=== PATIENT | male | born 1975 | race Caucasian/White ===

== ENCOUNTER 2020-03-19 17:47 | Emergency (ER) | payer BC, SELFPAY ==
[2020-03-19 18:02] VITALS: BP 154/86; PULSE 60; RESP 20; TEMP 36.8; O2SAT 98
--- NOTE | 2020-03-19 18:20 | ED.UPPEXIN ---
HPI - Extremity Injury (Upper) General Chief Complaint: Extremity Injury, Upper Stated Complaint: wrist lac Time Seen by Provider: 03/19/20 18:08 Source: patient Mode of arrival: ambulatory Limitations: no limitations History of Present Illness HPI narrative: This is a 44 year old male that presents to the ER for left wrist laceration sustained just prior to arrival. Reports a piece of cinder block broke and hit the left wrist. Is unsure of his last tetanus vaccine. Denies decreased range of motion or numbness. Related Data Home Medications Medication Instructions Recorded Confirmed omega 1-soy-uwd-fish oil [Fish Oil] 1 cap PO DAILY 03/19/20 paroxetine HCl mg PO 03/19/20 Allergies Allergy/AdvReac Type Severity Reaction Status Date / Time No Known Allergies Allergy Verified 03/19/20 18:19 Review of Systems Review of Systems: Narrative: CONSTITUTIONAL: Denies fever SKIN: Reports laceration MUSCULOSKELETAL: Denies joint pain, or myalgia. NEUROLOGIC: Denies numbness All systems reviewed & are unremarkable except as noted in HPI and below PMFSH Past Medical History Medical History (Updated 03/19/20 @ 18:55 by Marie Daley PA-C) History of hyperlipidemia Social History Social History (Updated 03/19/20 @ 18:22 by Marie Daley PA-C) Smoking status: Never smoker Exam Narrative: Exam Narrative: GENERAL: Well-appearing, well-nourished, and in no acute distress. HEAD: Normocephalic, atraumatic. EYES: EOMI. EXTREMITIES: Normal range of motion. No edema or obvious deformity. SKIN: Warm, dry, no rash. 1cm linear laceration into subcutaneous tissue over the left medial wrist NEURO: No focal deficits. Alert and oriented x3. PSYCH: Normal mood and affect Course Vital Signs Vital signs: Vital Signs Temperature 98.3 F 03/19/20 18:02 Pulse Rate 60 03/19/20 18:02 Respiratory Rate 03/19/20 18:02 Blood Pressure 154/86 H 03/19/20 18:02 Pulse Oximetry 98 03/19/20 18:02 Temperature 98.3 F 03/19/20 18:02 Pulse Rate 60 03/19/20 18:02 Respiratory Rate 03/19/20 18:02 Blood Pressure 154/86 H 07/03/20 18:02 Pulse Oximetry 98 03/19/20 18:02 Procedures Laceration Laceration 1: Date: 03/19/20 Time: 18:54 Site: hand Side (If applicable): left Size (cm): 1 Description: linear Depth: simple, single layer Local Anesthetic: lidocaine 1% and with epi Amount of anesthesia used (mL): 2 Pre-repair: irrigated ====== Skin Level ====== Skin layer closed with: nylon Size (cm): 5-0 Number of sutures: 2 Technique: simple, interrupted ====== Subcutaneous Layer ====== ====== Muscle Layer ====== ====== Tendon Layer ====== Dressing: Antibiotic ointment, gauze and tape MDM - Extremity Injury (Upper) MDM Narrative Medical decision making narrative: Patient presents the emergency department for left wrist laceration sustained just prior to arrival. Patient was updated on tetanus. Wound was irrigated and closed with sutures. Patient refused x-ray of the wrist. Patient was instructed on wound care. He is to follow-up with primary care doctor. He was given warnings to return to the ER Critical Care Time Critical Care Time Critical Care Time: No Discharge Plan Discharge Clinical Impression: Laceration Patient Disposition: Home, Self-Care Condition: Stable Instructions: Care For Your Stitches (ED), Laceration (ED) Additional Instructions: Return to the emergency department if you experience fever, redness or swelling of your wound, abnormal drainage from your wound, or any other symptoms that are concerning to you. Apply antibiotic ointment daily. Do not soak the wound. Clean with mild soap and water daily Follow-up with your primary care doctor for suture removal in 10-14 days. Prescriptions: No Action paroxetine HCl 20 mg tablet PO R
[2020-03-19] MEDS: TETANUS,DIPHTHERIA,AC PERTUSSIS ADULT (0.5 ML) BOOSTRIX IM (18:34)
--- NOTE | 2020-03-19 18:39 | PC.NURSE ---
ED PA in room with patient at this time.
== END 2020-03-19 19:06 | disposition home or self-care (01) ==
PROVIDERS: Emergency Provider Emergency Medicine; PCP Family Medicine Adolescent Medicine
DX: S61.512A Laceration without foreign body of left wrist, initial encounter (principal); E78.5 Hyperlipidemia, unspecified; W20.8XXA Other cause of strike by thrown, projected or falling object, initial encounter; Z23 Encounter for immunization
CPT/HCPCS: 12001; 90471; 90715; 99282

== ENCOUNTER 2022-05-13 13:03 | Emergency (ER) | payer BC, SELFPAY ==
[2022-05-13 13:29] VITALS: BP 147/87; PULSE 75; RESP 20; TEMP 36.4; O2SAT 97
--- NOTE | 2022-05-13 15:41 | ED.UPPEXIN ---
HPI - Extremity Injury (Upper) General Chief Complaint: Extremity Injury, Upper Stated Complaint: forearm vs chainsaw Time Seen by Provider: 05/13/22 15:34 History of Present Illness HPI narrative: Patient is a 47-year-old male who is left-handed here for evaluation of 3 lacerations to his right forearm sustained about 30 minutes prior to arrival. Patient was using a chainsaw in his backyard cutting down trees when he started to lose control the chainsaw and sustained a laceration. He does not believe the laceration was from a chainsaw and is actually from the trees that he was cutting. Patient's tetanus is up-to-date. He notes that the lacerations were bleeding initially but after arrival to the ED they stopped spontaneously. He denies any numbness or tingling, bony pain, further injuries in the accident. Related Data Home Medications Medication Instructions Recorded Confirmed omega 5-ndg-njn-fish oil 1,000 mg 1 cap PO DAILY 03/19/20 (120 mg-180 mg) capsule (Fish Oil) Allergies Allergy/AdvReac Type Severity Reaction Status Date / Time No Known Allergies Allergy Verified 03/19/20 18:19 Review of Systems Review of Systems: Gen: Denies fevers or chills Eyes: Denies eye pain or visual change ENT: Denies congestion Respiratory: Denies shortness of breath or cough CV: Denies chest pain or palpitations GI: Denies abdominal pain nausea, emesis or diarrhea : denies burning, urgency, frequency or hematuria Musculoskeletal: Denies back pain or muscle pain Neuro: Denies numbness, tingling, weakness or focal weakness Skin: Reports laceration Except as documented, all other systems reviewed and negative PMFSH Past Medical History Medical History History of hyperlipidemia Social History Social History (Updated 03/19/20 @ 18:22 by Marie Daley PA-C) Smoking status: Never smoker Exam Narrative: APPEARANCE: Well appearing, no pain in distress, well-nourished. Head: Normocephalic and atraumatic. EYES: PERRLA/EOMI, conjunctivae clear NOSE: No nasal drainage EARS: External ear normal in appearance THROAT: Oropharynx is clear. Mucous membranes are moist. NECK: Supple. No adenopathy, no masses. RESPIRATORY: Airway patent, respirations nonlabored. Clear to auscultation bilaterally, no rales, rhonchi, wheezing. CARDIOVASCULAR: Regular rate and rhythm without murmurs, rubs, or gallops. ABDOMINAL: Normoactive bowel sounds. Soft, nontender, nondistended. No rebound tenderness or guarding. MUSCULOSKELETAL: Full range of motion in right upper extremity. NEURO: Normal speech. No focal neurologic deficits. SKIN: Patient has 3 superficial linear lacerations to his right forearm that are parallel to one another, two about 2 cm in length, bottom one is about 0.75 cm. no active bleeding. Subcutaneous fat visible. No foreign body visualized. PSYCHIATRIC: Normal affect/mood. Course Vital Signs Vital signs: Vital Signs Temperature 97.6 F 05/13/22 13:29 Pulse Rate 75 05/13/22 13:29 Respiratory Rate 20 05/13/22 13:29 Blood Pressure 147/87 H 05/13/22 13:29 Pulse Oximetry 97 05/13/22 13:29 Oxygen Delivery Room Air 05/13/22 13:29 Temperature 97.6 F 05/13/22 13:29 Pulse Rate 75 05/13/22 13:29 Respiratory Rate 20 05/13/22 13:29 Blood Pressure 147/87 H 05/13/22 13:29 Pulse Oximetry 97 05/13/22 13:29 Oxygen Delivery Room Air 05/13/22 13:29 Procedures Laceration Laceration 1: Date: 05/13/22 Time: 16:49 Site: other (right arm) Size (cm): 3 Description: linear Depth: simple, single layer Local Anesthetic: lidocaine 1% and with epi Amount of anesthesia used (mL): 3 Pre-repair: wound explored and irrigated ====== Skin Level ====== Skin layer closed with: other (ethilno) Size (cm): 4-0 Number of sutures: 3 Technique: simple, interrupted
[2022-05-13] MEDS: LIDO 1%/EPINEPHRINE 1:100,000 20 ML VIAL 5 ML INFILTRATE (16:10)
== END 2022-05-13 17:32 | disposition home or self-care (01) ==
PROVIDERS: Emergency Provider Emergency Medicine
DX: S51.811A Laceration without foreign body of right forearm, initial encounter (principal); E78.5 Hyperlipidemia, unspecified; W29.3XXA Contact with powered garden and outdoor hand tools and machinery, initial encounter
CPT/HCPCS: 12004; 99282

== ENCOUNTER → 2022-07-29 11:00 | Outpatient (CLI) | payer BC, SELFPAY ==
--- NOTE | ~2022-07-29 | XR_ITS ---
XR knee RT 2V DATE: 07/29/2022 11:14 INDICATION: Right knee pain TECHNIQUE: Limited AP and lateral view examination COMPARISON: None FINDINGS: There is periarticular spurring at all 3 compartments, most prominent at the lateral compar tment. There is some sclerosis of the tibial plateaus, particularly lateral tibial plateau. Recent or remote fracture is not excluded. No significant joint effusion is detected. 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 MANAGER
== END ==
PROVIDERS: PCP Family Medicine Adolescent Medicine; Visit Provider Physician Assistant
DX: M17.11 Unilateral primary osteoarthritis, right knee (principal)
CPT/HCPCS: 73560